=== PATIENT | male | born 1970 | race Caucasian/White ===

== ENCOUNTER 2019-08-14 14:39 | Emergency (ER) | payer MEDICARE, SELFPAY ==
[2019-08-14 15:08] VITALS: BP 118/82; PULSE 81; RESP 16; TEMP 37.1; O2SAT 99
--- NOTE | 2019-08-14 16:25 | ED.GENADULT ---
HPI - General Adult General Chief complaint: Eye Problems Stated complaint: Eye problems Time Seen by Provider: 08/14/19 16:23 Source: patient and RN notes reviewed Mode of arrival: ambulatory Limitations: no limitations History of Present Illness HPI narrative: 49-year-old male presents with fatherMandeep complains of right eye redness, irritation, and itching for the past 7 days. No treatment. Symptoms increased today with drainage and redness. Slightly matted. No pain. No copious drainage. Exacerbating factors is opening eye. Relieving factors is closing eyes. Wear glasses. No injury or trauma to eye. No blurred vision, double vision, sensation of foreign body, or pain of eye with movement. Remains active. Some parts of this dictation were generated by voice recognition software and may contain typographical and/or grammatical inaccuracies. Related Data Home Medications Medication Instructions Recorded Confirmed Depakote 08/16/19 atorvastatin 08/16/19 lisinopril 08/16/19 Allergies Allergy/AdvReac Type Severity Reaction Status Date / Time No Known Allergies Allergy Verified 08/16/19 09:54 Review of Systems Review of Systems: Narrative: CONSTITUTIONAL: Denies fever, chills, sweats. EYES: Denies visual changes. Complains of RT eye redness, itching, irritation, drainage, matted together. ENT: Complains of rhinorrhea, congestion. Denies sore throat, otalgia. CARDIOVASCULAR: Denies chest pain, palpitations, edema. RESPIRATORY: Denies dyspnea, wheezing, cough. GASTROINTESTINAL: Denies abdominal pain, nausea, vomiting, diarrhea. GENITOURINARY: Denies dysuria, hematuria, abnormal discharge. SKIN: Denies rash or itching. MUSCULOSKELETAL: Denies acute back pain, joint pain, or myalgia. NEUROLOGIC: Denies numbness or focal weakness. PSYCHIATRIC: Denies anxiety or depression. All systems reviewed & are unremarkable except as noted in HPI and below. [facility] Past Medical History Medical History (Updated 08/23/19 @ 00:22 by ANNIKA Hinton) Hypercholesteremia Hypertension Seizures Surgical History Surgical History (Updated 08/14/19 @ 16:28 by ANNIKA Hinton) No significant past surgical history Family History Family History (Updated 08/14/19 @ 16:30 by ANNIKA Hinton) Father Hypertension Mother PSP (progressive supranuclear palsy) Social History Social History (Updated 08/14/19 @ 16:36 by ANNIKA Hinton) Smoking status: Never smoker Second hand tobacco smoke exposure: No Alcohol intake: current Substance use: never Gender identity (if verbalized by the patient): Male Comments At time of signature, agree with nurse past medical, surgical, social, and family history. There is no relevant family history pertinent to the presenting complaint. Exam Narrative: Exam Narrative: GENERAL: This is a well-nourished, well-developed patient, in no apparent distress. HEAD: normocephalic, atraumatic. EYES: PERRL. Sclera clear/white to LT eye only. RT eye sclera moderate tristen and clear, with yellow-green drainage Consistent with Conjunctivitis. No swelling, no tenderness on palpation. Vision is grossly intact. No visible or palpable Hordeolum present, no drainable abscess. No foreign body or lesions were noted on eversion of upper eyelid. No concern for Tana-orbital cellulitis or orbital cellulitis. EARS: External ears normal, auditory canals clear and without drainage, TMs normal without perforation. Hearing grossly intact. NOSE: External nose normal with no obvious nasal discharge, nares with mild redness and turbinate, no rhinorrhea. THROAT: Mucous membranes moist, posterior pharynx with PND, mild erythema, no exudate, and normal tonsils. No drainage, no concern for Peritonsillar abscess. No drooling, trismus, or neck swelling. CARDIOVASCULAR: Regular rate and rhythm without murmurs, gallops, or rubs. RESPIRATORY: Clear to auscultation.
== END 2019-08-14 16:47 | disposition home or self-care (01) ==
PROVIDERS: Emergency Provider Nurse Practitioner Family; PCP Internal Medicine
DX: H10.9 Unspecified conjunctivitis (principal); E78.00 Pure hypercholesterolemia, unspecified; I10 Essential (primary) hypertension; G40.909 Epilepsy, unspecified, not intractable, without status epilepticus
CPT/HCPCS: 99203; A9270; G0463

== ENCOUNTER 2019-08-16 09:22 | Emergency (ER) | payer MEDICARE, SELFPAY ==
[2019-08-16 09:44] VITALS: BP 116/74; PULSE 60; RESP 18; TEMP 36.2; O2SAT 99
--- NOTE | 2019-08-16 09:46 | ED.EYEPROB ---
HPI - Eye Problem General Chief complaint: Eye Problems Stated complaint: Right eye redness Time Seen by Provider: 08/16/19 09:46 Source: patient and RN notes reviewed History of Present Illness HPI Narrative: Patient is a 49-year-old male that presents to the urgent care with his father with complaints of eye irritation. Patient states is been ongoing for a couple weeks and he has been seen before for the same issue and given polymyxin. Patient states that he has been using the polymyxin as directed/as needed. Patient denies any trauma or injury to the eyes. States that he does rub his eyes a lot. No other acute complaints. No acute distress noted. Patient read the plan of care. Related Data Home Medications Medication Instructions Recorded Confirmed Depakote 08/16/19 atorvastatin 08/16/19 lisinopril 08/16/19 Allergies Allergy/AdvReac Type Severity Reaction Status Date / Time No Known Allergies Allergy Verified 08/16/19 09:54 Review of Systems Review of Systems: Narrative: CONSTITUTIONAL: Denies fever, chills, or sweats. EYES: Reports of right eye irritation/redness ENT: Denies rhinorrhea, congestion, sore throat, or otalgia. CARDIOVASCULAR: Denies chest pain, palpitations, or edema. RESPIRATORY: Denies cough or dyspnea. GASTROINTESTINAL: Denies abdominal pain, nausea, vomiting, or diarrhea. GENITOURINARY: Denies dysuria or hematuria. SKIN: Denies rash or itching. MUSCULOSKELETAL: Denies back pain, joint pain, or myalgia. NEUROLOGIC: Denies headache, numbness, or weakness. All other systems reviewed are negative, except as documented in HPI. [facility] Past Medical History Medical History (Updated 08/16/19 @ 10:01 by ANNIKA Jamison) Hypercholesteremia Hypertension Seizures Surgical History Surgical History (Updated 08/14/19 @ 16:28 by ANNIKA Hinton) No significant past surgical history Family History Family History (Updated 08/14/19 @ 16:30 by ANNIKA Hinton) Father Hypertension Mother PSP (progressive supranuclear palsy) Social History Social History (Updated 08/14/19 @ 16:36 by ANNIKA Hinton) Smoking status: Never smoker Second hand tobacco smoke exposure: No Alcohol intake: current Substance use: never Gender identity (if verbalized by the patient): Male Comments At the time of my signature, I reviewed and agree with the nursing past medical, surgical, social, and family history. There is no relevant family history pertinent to the patient complaint. Exam Narrative: Exam Narrative: GENERAL: This is a well-nourished, well-developed patient, in no apparent distress. HEAD: normocephalic, atraumatic. EYES: PERRL. Sclera clear/white. Vision is grossly intact. Very mild erythema noted to right conjunctivea without matting or discharge. EARS: External ears normal, auditory canals clear and without drainage, TMs normal without perforation. Hearing grossly intact. NOSE: External nose normal with no obvious nasal discharge, nares without redness, no rhinorrhea. THROAT: Mucous membranes moist NECK: Neck supple CARDIOVASCULAR: Regular rate and rhythm without murmurs, gallops, or rubs. RESPIRATORY: Clear to auscultation. Breath sounds equal bilaterally. No wheezes, rales, or rhonchi. SKIN: warm, intact with no suspicious lesions or rash, good texture and turgor. NEURO: awake, alert, and oriented to person, place and time. There were no obvious focal neurologic abnormalities. EXTREMITIES: No clubbing, cyanosis, or edema. Course Vital Signs Vital signs: Vital Signs Temperature 97.1 F L 08/16/19 09:44 Pulse Rate 60 08/16/19 09:44 Respiratory Rate 18 08/16/19 09:44 Blood Pressure 116/74 08/16/19 09:44 Pulse Oximetry 99 08/16/19 09:44 Temperature 97.1 F L 08/16/19 09:44 Pulse Rate 60 08/16/19 09:44 Respiratory Rate 18 08/16/19 09:44 Blood Pressure 116/74 08/16/19 09:44 Pulse Oximetry 99 08/16/19
== END 2019-08-16 10:03 | disposition home or self-care (01) ==
PROVIDERS: Emergency Provider Nurse Practitioner Family; PCP Internal Medicine
DX: H10.11 Acute atopic conjunctivitis, right eye (principal); E78.00 Pure hypercholesterolemia, unspecified; I10 Essential (primary) hypertension; G40.909 Epilepsy, unspecified, not intractable, without status epilepticus
CPT/HCPCS: 99211; G0463

== ENCOUNTER 2019-12-02 09:43 | Outpatient (CLI) | payer MEDICARE, SELFPAY ==
[2019-12-02 10:21] LABS: Basophils Percent Auto 0.6 % (0.2-1.2); Eosinophils Absolute Auto 0.4 K/mm3 (0-0.3); Eosinophils Percent Auto 6.8 % (0-4.4); Hematocrit 45.2 % (42.0-52.0); Immature Granulocyte Absolute 0.01 K/mm3 (0.00-0.031); Immature Granulocyte Percent A 0.2 % (0-0.5); Lymphocytes Absolute Auto 2.34 K/mm3 (0.9-3.2); Lymphocytes Percent Auto 37.3 % (18.3-44.2); Mean Corpuscular HGB Conc 33.2 g/dl (32-36); Mean Corpuscular Hemoglobin 30.8 pg (26-34); Mean Corpuscular Volume 92.8 fl (80-100); Mean Platelet Volume 10.1 fl (7.4-10.4); Monocytes Absolute Auto 0.7 K/mm3 (0.1-0.6); Monocytes Percent Auto 10.7 % (2.6-8.5); Neutrophils Absolute Auto 2.8 K/mm3 (1.3-6.7); Neutrophils Percent Auto 44.4 % (45.5-73.1); Platelet Count Result 234 k/mm3 (150-375); Red Blood Count 4.87 M/mm3 (4.6-6.20); Red Cell Distribution Width 12.5 % (11.5-14.5); White Blood Count 6.3 K/mm3 (4.5-10.0)
[2019-12-02 10:34] LABS: Alanine Aminotransferase 20 U/L (4-50); Albumin Level 4.2 g/dL (3.5-5.1); Alkaline Phosphatase 64 U/L (38-126); Aspartate Amino Transferase 28 U/L (17-59); Bilirubin,Total 0.8 mg/dL (0.2-1.3); Blood Urea Nitrogen 16 mg/dL (9-20); Calcium 8.7 mg/dL (8.4-10.2); Carbon Dioxide 27 mmol/L (22-30); Chloride 104 mmol/L (98-107); Cholesterol 162 mg/dL (0-200); Estimated Glomerular Filt Rate > 60; Glucose 103 mg/dL (75-110); HDL Direct 58 mg/dL; Potassium 4.5 mmol/L (3.4-5.0); Sodium 137 mmol/L (137-145); Triglycerides 60 mg/dL (<150)
[2019-12-02 10:48] LABS: LDL Cholesterol Direct 77 mg/dL
[2019-12-02 10:50] LABS: Valproic Acid 97.2 ug/mL (50-120)
== END 2019-12-02 09:44 | disposition home or self-care (01) ==
PROVIDERS: PCP Internal Medicine; Visit Provider Internal Medicine
DX: E78.2 Mixed hyperlipidemia (principal); Z79.899 Other long term (current) drug therapy
CPT/HCPCS: 36415; 80053; 80061; 80164; 84443; 85025

== ENCOUNTER 2020-08-13 15:47 | Outpatient (CLI) | payer MEDICARE, SELFPAY | END 2020-08-13 15:48 | disposition home or self-care (01) | LOC: ANHCOVIDVC 15:47 | PROVIDERS: PCP Internal Medicine | DX: Z23 Encounter for immunization (principal) | CPT/HCPCS: 0001A; 91300 ==

== ENCOUNTER 2020-09-03 15:53 | Outpatient (CLI) | payer MEDICARE, SELFPAY | END 2020-09-03 15:54 | disposition home or self-care (01) | LOC: ANHCOVIDVC 15:54 | PROVIDERS: PCP Internal Medicine | DX: Z23 Encounter for immunization (principal) | CPT/HCPCS: 0002A; 91300 ==

== ENCOUNTER 2020-12-28 14:52 | Outpatient (CLI) | payer MEDICARE, SELFPAY ==
[2020-12-28 15:30] LABS: Basophils Percent Auto 0.5 % (0.2-1.2); Eosinophils Absolute Auto 0.1 K/mm3 (0-0.3); Eosinophils Percent Auto 1.2 % (0-4.4); Hematocrit 47.2 % (42.0-52.0); Hemoglobin 15.1 g/dL (14.0-18.0); Immature Granulocyte Absolute 0.02 K/mm3 (0.00-0.031); Immature Granulocyte Percent A 0.3 % (0-0.5); Lymphocytes Absolute Auto 1.84 K/mm3 (0.9-3.2); Lymphocytes Percent Auto 32.1 % (18.3-44.2); Mean Corpuscular Hemoglobin 29.5 pg (26-34); Mean Corpuscular Volume 92.2 fl (80-100); Mean Platelet Volume 11.6 fl (7.4-10.4); Monocytes Absolute Auto 0.6 K/mm3 (0.1-0.6); Monocytes Percent Auto 9.6 % (2.6-8.5); Neutrophils Absolute Auto 3.2 K/mm3 (1.3-6.7); Neutrophils Percent Auto 56.3 % (45.5-73.1); Platelet Count Result 196 k/mm3 (150-375); Red Blood Count 5.12 M/mm3 (4.6-6.20); Red Cell Distribution Width 12.6 % (11.5-14.5); White Blood Count 5.7 K/mm3 (4.5-10.0)
[2020-12-28 16:03] LABS: Alanine Aminotransferase 30 U/L (4-50); Albumin Level 4.3 g/dL (3.5-5.1); Alkaline Phosphatase 54 U/L (38-126); Anion Gap 8 mmol/L (8-16); Aspartate Amino Transferase 30 U/L (17-59); Bilirubin,Total 0.8 mg/dL (0.2-1.3); Blood Urea Nitrogen 15 mg/dL (9-20); Calcium 9.6 mg/dL (8.4-10.2); Carbon Dioxide 31 mmol/L (22-30); Chloride 103 mmol/L (98-107); Cholesterol 159 mg/dL (0-200); Estimated Glomerular Filt Rate > 60; Glucose 94 mg/dL (65-110); HDL Direct 56 mg/dL; Potassium 4.1 mmol/L (3.4-5.0); Sodium 142 mmol/L (137-145); Triglycerides 93 mg/dL (<150)
[2020-12-28 16:14] LABS: LDL Cholesterol Direct 65 mg/dL
[2020-12-28 16:33] LABS: Prostate Specific Antigen 0.5 ng/mL (< OR = 4.0)
[2020-12-28 16:59] LABS: Valproic Acid 47.7 ug/mL (50-120)
[2020-12-28 17:12] LABS: Free T4 Free Thyroxine 1.04 ng/mL (0.78-2.19); Vitamin D 25 Hydroxy 46.4 ng/mL
[2020-12-28 18:12] LABS: Hemoglobin A1C 5.4 % (<5.7)
[2021-01-04 19:32] LABS: GGT 15 U/L (3-95)
== END 2020-12-28 14:53 | disposition home or self-care (01) ==
PROVIDERS: PCP Internal Medicine; Visit Provider Internal Medicine
DX: Z79.899 Other long term (current) drug therapy (principal); Z12.5 Encounter for screening for malignant neoplasm of prostate; E78.2 Mixed hyperlipidemia; R56.9 Unspecified convulsions; E55.9 Vitamin D deficiency, unspecified
CPT/HCPCS: 36415; 80053; 80061; 80164; 82306; 82977; 83036; 84153; 84439; 84443; 85025; G0103

== ENCOUNTER 2021-05-24 07:41 | Outpatient (CLI) | payer MEDICARE, SELFPAY ==
[2021-05-24 08:28] LABS: Alanine Aminotransferase 41 U/L (4-50); Albumin Level 4.2 g/dL (3.5-5.1); Alkaline Phosphatase 63 U/L (38-126); Aspartate Amino Transferase 31 U/L (17-59); Bilirubin,Total 0.4 mg/dL (0.2-1.3)
[2021-05-24 08:35] LABS: Prealbumin 23.9 mg/dL (17.6-36.0)
[2021-05-24 09:35] LABS: Folic Acid 6.6 ng/mL (2.76->20)
[2021-05-28 08:13] LABS: Vitamin B1 19 nmol/L (8-30)
[2021-05-31 22:38] LABS: Vitamin B2 <5.0 nmol/L (6.2-39.0)
== END 2021-05-24 07:42 | disposition home or self-care (01) ==
LOC: ANHLAB 07:47
PROVIDERS: PCP Internal Medicine; Visit Provider Internal Medicine
DX: E53.9 Vitamin B deficiency, unspecified (principal); R63.4 Abnormal weight loss; Z51.81 Encounter for therapeutic drug level monitoring; Z79.899 Other long term (current) drug therapy
CPT/HCPCS: 36415; 80076; 82607; 82746; 84134; 84252; 84425

== ENCOUNTER → 2021-06-07 08:53 | Outpatient (CLI) | payer MEDICARE, SELFPAY ==
--- NOTE | ~2021-06-07 | CT_ITS ---
EXAMINATION: CT chest abdomen pelvis w con DATE: 06/07/2021 09:28 INDICATION: Weight loss TECHNIQUE: Computed tomography (CT) of the chest, abdomen, and pelvis was performed with 100 mL Omnip aque-350 intravenous contrast. Automated exposure control and iterative reconstruction technique were employed. The dose-length product was 544.52 mGy-cm. COMPARISON: None FINDINGS: CHEST CT: No suspicious pulmonary nodules, pneumonia, pulmonary edema or pleural effusion. Heart size is normal . No pericardial effusion. Thoracic aorta is normal in caliber with no dissection. No pathologically enlarged thoracic lymphadenopathy. Moderate thoracic spondylosis. Small sclerotic bone island at the left humeral head. ABDOMEN/PELVIS CT: Liver, gallbladder, spleen, pancreas and bilateral adrenal glands are normal. A couple right renal cy sts the larger measuring 3.7 cm. Diffuse mild thickening of the bladder wall. Bowels including the ap pendix are normal. No free intraperitoneal gas or fluid. No pathologically enlarged abdominal or pelv ic lymphadenopathy. Moderate lumbar spondylosis. Nonspecific 8 mm peripherally sclerotic lesion in th e left iliac bone. Small sclerotic bone island at the left femoral head. IMPRESSION: 1. Diffuse mild wall thickening of the bladder which could be due to incomplete distention with diffe rential including cystitis either acute or chronic, chronic outlet obstruction or neurogenic bladder. 2. 8 mm peripherally sclerotic lesion at the left iliac bone, most likely benign but would consider b one scan if there is no prior outside imaging to document chronic stability. 3. No other lesions suspicious for malignancy the chest, abdomen or pelvis. Reviewed, dictated and finalized at location B. SPLITTER IMPRESSION: 1. Diffuse mild wall thickening of the bladder which could be due to incomplete distention with differential including cystitis either acute or chronic, chron ic outlet obstruction or neurogenic bladder. 2. 8 mm peripherally sclerotic lesion at the left iliac bone, most likely benig n but would consider bone scan if there is no prior outside imaging to document chronic stability. 3. No other lesions suspicious for malignancy the chest, abdomen or pelvis.
== END ==
PROVIDERS: Visit Provider Internal Medicine
DX: R63.4 Abnormal weight loss (principal); R93.41 Abnormal radiologic findings on diagnostic imaging of renal pelvis, ureter, or bladder; M89.9 Disorder of bone, unspecified
CPT/HCPCS: 71260; 74177; Q9967

== ENCOUNTER 2021-06-18 10:20 | Outpatient (CLI) | payer MEDICARE, SELFPAY ==
[2021-06-18 10:37] LABS: Basophils Percent Auto 0.4 % (0.2-1.2); Eosinophils Absolute Auto 0.1 K/mm3 (0-0.3); Eosinophils Percent Auto 2.6 % (0-4.4); Hematocrit 47.3 % (42.0-52.0); Hemoglobin 15.1 g/dL (14.0-18.0); Immature Granulocyte Absolute 0.01 K/mm3 (0.00-0.031); Immature Granulocyte Percent A 0.2 % (0-0.5); Lymphocytes Absolute Auto 1.52 K/mm3 (0.9-3.2); Lymphocytes Percent Auto 32.6 % (18.3-44.2); Mean Corpuscular HGB Conc 31.9 g/dl (32-36); Mean Corpuscular Hemoglobin 30.4 pg (26-34); Mean Corpuscular Volume 95.4 fl (80-100); Mean Platelet Volume 10.4 fl (7.4-10.4); Monocytes Absolute Auto 0.7 K/mm3 (0.1-0.6); Monocytes Percent Auto 14.6 % (2.6-8.5); Neutrophils Absolute Auto 2.3 K/mm3 (1.3-6.7); Neutrophils Percent Auto 49.6 % (45.5-73.1); Platelet Count Result 203 k/mm3 (150-375); Red Blood Count 4.96 M/mm3 (4.6-6.20); Red Cell Distribution Width 12.5 % (11.5-14.5); White Blood Count 4.7 K/mm3 (4.5-10.0)
[2021-06-18 11:54] LABS: Free T4 Free Thyroxine 0.77 ng/mL (0.78-2.19); Vitamin D 25 Hydroxy 42.7 ng/mL
[2021-06-18 12:52] LABS: Alanine Aminotransferase 26 U/L (4-50); Albumin Level 4.4 g/dL (3.5-5.1); Alkaline Phosphatase 57 U/L (38-126); Anion Gap 7 mmol/L (8-16); Aspartate Amino Transferase 32 U/L (17-59); Bilirubin,Total 0.6 mg/dL (0.2-1.3); Blood Urea Nitrogen 24 mg/dL (9-20); Calcium 9.5 mg/dL (8.4-10.2); Carbon Dioxide 33 mmol/L (22-30); Chloride 105 mmol/L (98-107); Cholesterol 186 mg/dL (0-200); Estimated Glomerular Filt Rate > 60; Glucose 90 mg/dL (65-110); HDL Direct 45 mg/dL; Potassium 4.1 mmol/L (3.4-5.0); Sodium 145 mmol/L (137-145); Triglycerides 83 mg/dL (<150)
[2021-06-18 13:02] LABS: LDL Cholesterol Direct 100 mg/dL
[2021-06-18 14:10] LABS: Folic Acid 18.2 ng/mL (2.76->20); Vitamin B12 > 1000.0 pg/mL (239-931)
== END 2021-06-18 10:21 | disposition home or self-care (01) ==
LOC: ANHLAB 10:25
PROVIDERS: PCP Internal Medicine; Visit Provider Internal Medicine
DX: E55.9 Vitamin D deficiency, unspecified (principal); E53.8 Deficiency of other specified B group vitamins; E78.2 Mixed hyperlipidemia; Z13.29 Encounter for screening for other suspected endocrine disorder; Z79.899 Other long term (current) drug therapy
CPT/HCPCS: 36415; 80053; 80061; 82306; 82607; 82746; 84439; 84443; 85025

== ENCOUNTER 2021-06-22 15:17 | Outpatient (CLI) | payer MEDICARE, SELFPAY ==
--- NOTE | ~2021-06-22 | XR_ITS ---
EXAMINATION: XR lumbar spine 2-3V EXAM DATE: 06/22/2021 10:33 INDICATION: M54.9Dorsalgia 2 months, No Injury, Radiculopathy Both Legs . TECHNIQUE: Lumber spine frontal, lateral, lateral L5-S1 projections for interpretation. There is no prior study for comparison. FINDINGS: There are no acute fractures identified. Mild to moderate disc disease L-1-2, L4-5 and L5-S 1. There is grade 1 retrolisthesis L5 on S1. There is mild to moderate lower lumbar facet arthropathy . Mild lumbar levoscoliosis. Sacrum, sacroiliac joints, sacral arcuate lines are intact. Paraspinal s oft tissue is unremarkable. IMPRESSION: 1. Mild to moderate lumbar spondylosis. 2. Mild levoscoliosis. Reviewed, dictated and finalized at location G. SUPERVISOR
[2021-06-22 10:56] LABS: Basophils Percent Auto 0.4 % (0.2-1.2); Eosinophils Absolute Auto 0.1 K/mm3 (0-0.3); Hematocrit 48.9 % (42.0-52.0); Hemoglobin 15.6 g/dL (14.0-18.0); Immature Granulocyte Absolute 0.01 K/mm3 (0.00-0.031); Immature Granulocyte Percent A 0.2 % (0-0.5); Lymphocytes Absolute Auto 1.94 K/mm3 (0.9-3.2); Lymphocytes Percent Auto 38.2 % (18.3-44.2); Mean Corpuscular HGB Conc 31.9 g/dl (32-36); Monocytes Absolute Auto 0.5 K/mm3 (0.1-0.6); Monocytes Percent Auto 9.6 % (2.6-8.5); Neutrophils Absolute Auto 2.5 K/mm3 (1.3-6.7); Neutrophils Percent Auto 49.6 % (45.5-73.1); Platelet Count Result 242 k/mm3 (150-375); Red Cell Distribution Width 12.2 % (11.5-14.5); White Blood Count 5.1 K/mm3 (4.5-10.0)
[2021-06-22 11:02] LABS: Add Urine Microscopic? YES; Amorphous Sediment Urine Few; Appearance Urine Cloudy (Clear); Bilirubin Urine Negative (Negative); Blood Urine Negative (Negative); Color Urine Yellow (Yellow); Glucose Urine UA Negative (Negative); Ketones Urine Trace mg/dL (Negative); Leukocyte Esterase Ur Negative LEU/UL (Negative); Mucus Urine Heavy /lpf; Nitrate Urine Negative (Negative); Protein Urine Negative (Negative); RBC Urine 0-2 /hpf (0-2); Urobilinogen Urine Negative mg/dL (<2.0); WBC Urine 0-3 /hpf
[2021-06-22 11:18] LABS: Specific Grav Ur 1.031 (1.001-1.035)
[2021-06-23 20:36] LABS: Erythrocyte Sedimentation Rate 9 mm/hr (0-20)
== END 2021-06-22 15:18 | disposition home or self-care (01) ==
LOC: ANHLAB 06-23 15:17
PROVIDERS: PCP Internal Medicine; Visit Provider Internal Medicine
DX: G89.29 Other chronic pain (principal); M54.50 Low back pain, unspecified; R53.1 Weakness; Z79.899 Other long term (current) drug therapy; M47.816 Spondylosis without myelopathy or radiculopathy, lumbar region; M41.86 Other forms of scoliosis, lumbar region
CPT/HCPCS: 36415; 72100; 81001; 85025; 85652

== ENCOUNTER 2021-07-01 12:47 | Outpatient (CLI) | payer MEDICARE, MEDICAID, SELFPAY | END 2021-07-01 12:48 | disposition home or self-care (01) | PROVIDERS: PCP Internal Medicine; Visit Provider Internal Medicine | DX: M54.9 Dorsalgia, unspecified (principal); G89.29 Other chronic pain; Z79.899 Other long term (current) drug therapy | CPT/HCPCS: 87086; 97110; 97161 ==

== ENCOUNTER 2021-07-05 08:26 | Outpatient (CLI) | payer MEDICARE, MEDICAID, SELFPAY ==
--- NOTE | ~2021-07-05 | NM_ITS ---
EXAMINATION: NM bone scan whole body DATE: 07/05/2021 11:47 INDICATION: Disorder of bone, unspecified. Sclerotic lesion of left ilium. TECHNIQUE: 25.4 mCi Tc-99m HDP was administered intravenously. Delayed whole-body scintigrams were o btained. COMPARISON: CT chest, abdomen, and pelvis 06/07/2021 FINDINGS: There is increased activity at L4-L5 correlating with degenerative disc disease by CT. Ther e is increased activity at the acromioclavicular joints, likely osteoarthritis. IMPRESSION: 1. No evidence of malignancy. Reviewed, dictated and finalized at location A. EX THREAD WINDER
== END 2021-07-05 08:27 | disposition home or self-care (01) ==
LOC: ANHIMG 08:32
PROVIDERS: PCP Internal Medicine; Visit Provider Internal Medicine
DX: M89.9 Disorder of bone, unspecified (principal)
CPT/HCPCS: 78306; A9561

== ENCOUNTER 2021-07-26 15:30 | Outpatient (RCR) | payer MEDICARE, MEDICAID, SELFPAY ==
--- NOTE | 2021-07-01 10:42 | PTOPEVAL ---
PHYSICAL THERAPY EVALUATION AND PLAN OF CARE 07-01-21 Thank you for referring Michael Pang to [facility] [facility], for the diagnosis of back pain. Zachary is scheduled to be seen for therapy? 2 x/week for 3 weeks. Please review, sign, date and return this plan of care INES. I agree with and certify that the following plan of care is medically necessary. Referring Physician Date Attending Provider: Eladio Brush MD *PT Outpatient Evaluation Document 07/01/21 09:45 NEELAM (Rec: 07/01/21 10:41 NEELAM [id number]) Past Medical History Source of Past Medical History Recalled from Previous Visit, Confirmed with Patient/Family Neurological History Hx Neurological Disorders No Significant History Cardiovascular History Hx Hypercholesterolemia Yes: meds Hx Hypertension Yes Respiratory History Hx Respiratory Disorders No Significant History Gastrointestinal History Hx Gastrointestinal Disorders No Significant History Genitourinary History Hx Genitourinary Disorders No Significant History Musculoskeletal History Hx Other Musculoskeletal Disorders Yes: B knee pain Hematological History Hx Hematological Disorders No Significant History Endocrine History Hx Endocrine Disorders No Significant History HEENT History Hx HEENT Disorders No Significant History Integumentary History Hx Skin Disorders No Significant History Reproductive History Hx Reproductive Disorders No Significant History Psychosocial History Hx Attention Deficit Disorder Yes Hx Psychiatric Treatment Yes Hx Other Psychiatric Disorders Yes: dyslexic, autism Pain History History of Any Previous or Ongoing No Significant History Instance of Pain Anesthesia History Hx Anesthesia Reactions No Significant History Evaluation Information Problem Diagnosis back pain Onset Mar 2021 Additional Evaluation Detail caregiver Tammi with pt today Subjective Information gradual increase in pain; no Query Text:As Reported By Patient/ injury to back; to have bone Family scan and see neurologist--? 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
--- NOTE | 2021-07-05 07:21 | PCPTNOTE ---
Patient called & cancelled scheduled appointment this date due to having appointment with returned case inspector.
--- NOTE | 2021-07-07 10:46 | PCPTNOTE ---
Patient called & cancelled scheduled appointment this date due to bad weather.
--- NOTE | 2021-07-22 13:40 | PCPTNOTE ---
pt cancel due to bad weather;
--- NOTE | 2021-07-26 16:13 | PTOPEVAL ---
PHYSICAL THERAPY DISCHARGE 07-26-21 Refer to the clinical summary below, for his status today, compared to the initial evaluation. The goals were partially achieved. Discharge PT--to continue with home exercises and posture correction. Thank you for referring Michael Pang to [facility].? Please review, sign, date and return this Discharger report INES. I agree with and certify that the following plan of care is medically necessary. Referring Physician Date Attending Provider: Eladio Brush MD Document 07/26/21 15:30 NEELAM (Rec: 07/26/21 16:13 NEELAM [id number]) Assessment Status Discharge Subjective Information Zachary reports: has been trying Query Text:As Reported By Patient/ to do his exercises every day- Family -family and helpers remind him ; is working without back hurting; Pain Assessment Timing of Pain Assessment Timing of Pain Assessment Assessment Pain Scale Pain Scale Used Numeric (1 - 10) Self Report Pain Assessment Bilateral Back Reported Pain Level 0 Pain Frequency Chronic,Intermittent Other Pain Description hurts sometimes; Other Pain Aggravating Factors potato picker something heavy Pain Score Pain Score 0: Self Report Interventions Used Interventions Used By Clinicians Education,Exercise Pain Relief Interventions Used By Inactivity/Rest Patient Lumbar ROM standing trunk flexion- fingers to ankles without pain ; trunk extension without pain ; prone on elbows reported feels good; Gross Lower Extremity Range of Motion R and L supine PROM: hamstring Comments stretch with SLR 60'; hip flexion, IR, ER without an increase pain Gross Lower Extremity Strength functional strength testing supine: SLR R 24/L 22 reps; side lying hip abduction R and L 25 reps prone hip extension R & L 20 reps -------- lifting floor/waist height with B UE and correct technique; required a few cues for posture with exercises; reviewed HEP, instruct to increase reps to 20 each, has been doing 10 reps, sometimes 2 sets; discuss
== END 2021-07-27 13:24 | disposition home or self-care (01) ==
LOC: ANHPT 15:30
PROVIDERS: PCP Internal Medicine; Visit Provider Internal Medicine
DX: M54.50 Low back pain, unspecified (principal); G89.29 Other chronic pain; M54.9 Dorsalgia, unspecified
CPT/HCPCS: 97110; 97161; 97530

== ENCOUNTER 2021-08-10 16:16 | Emergency (ER) | payer MEDICARE, MEDICAID, SELFPAY ==
[2021-08-10 16:54] VITALS: BP 105/78; PULSE 66; RESP 16; TEMP 36.8; O2SAT 98
--- NOTE | 2021-08-10 17:07 | ED.EYEPROB ---
HPI - Eye Problem General Chief complaint: Eye Problems Stated complaint: pink eye Time Seen by Provider: 08/10/21 17:07 Source: patient Mode of arrival: ambulatory Limitations: no limitations History of Present Illness HPI Narrative: 51 yo M presents with c/o itching, irritation, rednes and yellow drainge from L eye starting last night. pt wears glasses. no contact. denies trauma. no vision change. All systems reviewed and negative except as noted above. Related Data Allergies Allergy/AdvReac Type Severity Reaction Status Date / Time No Known Drug Allergies Allergy Unknown Unknown Verified 08/10/21 17:12 Review of Systems Review of Systems: CONSTITUTIONAL: Denies fever, chills, or sweats. EYES: Denies visual changes. Reports redness, drainage, irritation to left eye. ENT: Denies rhinorrhea, congestion, sore throat, or otalgia. CARDIOVASCULAR: Denies chest pain, palpitations, or edema. RESPIRATORY: Denies cough or dyspnea. GASTROINTESTINAL: Denies abdominal pain, nausea, vomiting, or diarrhea. GENITOURINARY: Denies dysuria or hematuria. SKIN: Denies rash or itching. MUSCULOSKELETAL: Denies back pain, joint pain, or myalgia. NEUROLOGIC: Denies headache, numbness, or weakness. PSYCHIATRIC: Denies anxiety or depression. All other systems reviewed are negative, except as documented in HPI. [facility] Past Medical History Medical History (Updated 08/10/21 @ 17:19 by Penny Limon NP) Adult BMI 19-24 kg/sq m Adult BMI <19 kg/sq m Autism Back pain BMI 23.0-23.9, adult Bone lesion Chronic low back pain Colon cancer screening Encounter for routine adult health examination with abnormal findings Encounter for routine adult health examination without abnormal findings Encounter for special screening examination for neoplasm of prostate Follow up Hyperlipidemia Hypertension On termite control service representative drug therapy Pyogenic granuloma Seizures Unintentional weight loss Vitamin D deficiency Surgical History Surgical History No significant past surgical history Family History Family History Father Hypertension Mother PSP (progressive supranuclear palsy) Social History Social History Smoking status: Never smoker Second hand tobacco smoke exposure: No Alcohol intake: current Substance use: never Gender identity (if verbalized by the patient): Male Comments At time of signature, agree with nursing past medical, surgical, social and family history. There is no relevant family history pertinent to the presenting complaint. Exam Narrative: GENERAL: This is a well-nourished, well-developed patient, in no apparent distress. HEAD: normocephalic, atraumatic. EYES: PERRL. Erythema to left conjunctive a, yellow drainage noted. EARS: External ears normal, auditory canals clear and without drainage, TMs normal without perforation. Hearing grossly intact. NOSE: External nose normal with no obvious nasal discharge, nares without redness, no rhinorrhea. THROAT: Mucous membranes moist, posterior pharynx clear. NECK: Neck supple, non-tender without lymphadenopathy, masses or thyromegaly. CARDIOVASCULAR: Regular rate and rhythm without murmurs, gallops, or rubs. RESPIRATORY: Clear to auscultation. Breath sounds equal bilaterally. No wheezes, rales, or rhonchi. GASTROINTESTINAL: Abdomen soft, non-tender, nondistended. Bowel sounds are active. No hepato-splenomegaly, or palpable masses. No guarding. SKIN: warm, Dry, intact with no suspicious lesions or rash, good texture and turgor. NEURO: awake, alert, and oriented to person, place and time. There were no obvious focal neurologic abnormalities. EXTREMITIES: No joint tenderness, effusion, or edema noted. No calf tenderness. Negative Homans sign bilaterally. BACK: Nontender without deformity. No CVA tenderness. Cou
== END 2021-08-10 17:30 | disposition home or self-care (01) ==
PROVIDERS: Emergency Provider Nurse Practitioner Family; PCP Internal Medicine
DX: H10.32 Unspecified acute conjunctivitis, left eye (principal); F84.0 Autistic disorder; E78.5 Hyperlipidemia, unspecified; I10 Essential (primary) hypertension; G40.909 Epilepsy, unspecified, not intractable, without status epilepticus
CPT/HCPCS: 99213; G0463

== ENCOUNTER 2021-09-24 15:35 | Outpatient (CLI) | payer MEDICARE, MEDICAID, SELFPAY ==
[2021-09-24 16:22] LABS: Valproic Acid 51.2 ug/mL (50-120)
[2021-09-24 16:34] LABS: Free T4 Free Thyroxine 0.82 ng/mL (0.78-2.19)
== END 2021-09-24 15:36 | disposition home or self-care (01) ==
PROVIDERS: PCP Internal Medicine; Visit Provider Internal Medicine
DX: R94.6 Abnormal results of thyroid function studies (principal); Z79.899 Other long term (current) drug therapy
CPT/HCPCS: 36415; 80164; 84439; 84443

== ENCOUNTER 2021-10-07 15:07 | Outpatient (CLI) | payer MEDICARE, MEDICAID, SELFPAY ==
[2021-10-07 16:31] LABS: Anion Gap 4 mmol/L (8-16); Blood Urea Nitrogen 21 mg/dL (9-20); Carbon Dioxide 31 mmol/L (22-30); Chloride 106 mmol/L (98-107); Cholesterol 185 mg/dL (0-200); Estimated Glomerular Filt Rate > 60; Glucose 88 mg/dL (65-110); HDL Direct 63 mg/dL; Potassium 4.3 mmol/L (3.4-5.0); Sodium 141 mmol/L (137-145); Triglycerides 82 mg/dL (<150)
[2021-10-07 16:47] LABS: LDL Cholesterol Direct 82 mg/dL
[2021-10-07 17:06] LABS: Free T4 Free Thyroxine 0.74 ng/mL (0.78-2.19)
[2021-10-08 06:47] LABS: Valproic Acid 49.9 ug/mL (50-120)
== END 2021-10-07 15:08 | disposition home or self-care (01) ==
PROVIDERS: PCP Internal Medicine; Visit Provider Internal Medicine
DX: R94.6 Abnormal results of thyroid function studies (principal); Z79.899 Other long term (current) drug therapy; Z13.1 Encounter for screening for diabetes mellitus; E78.2 Mixed hyperlipidemia
CPT/HCPCS: 36415; 80048; 80061; 80164; 83036; 84439; 84443

== ENCOUNTER 2021-12-03 10:05 | Outpatient (CLI) | payer MEDICARE, MEDICAID, SELFPAY ==
[2021-12-03 10:44] LABS: Alanine Aminotransferase 40 U/L (6-50); Aspartate Amino Transferase 46 U/L (17-59)
== END 2021-12-03 10:06 | disposition home or self-care (01) ==
PROVIDERS: PCP Internal Medicine; Visit Provider Podiatrist Foot & Ankle Surgery
DX: B35.1 Tinea unguium (principal)
CPT/HCPCS: 36415; 84450; 84460

== ENCOUNTER 2022-03-14 15:17 | Outpatient (CLI) | payer MEDICARE, MEDICAID, SELFPAY ==
[2022-03-14 15:47] LABS: Alanine Aminotransferase 36 U/L (6-50); Aspartate Amino Transferase 31 U/L (17-59)
== END 2022-03-14 15:18 | disposition home or self-care (01) ==
LOC: ANHLAB 15:20
PROVIDERS: PCP Internal Medicine; Visit Provider Podiatrist Foot & Ankle Surgery
DX: B35.1 Tinea unguium (principal)
CPT/HCPCS: 36415; 84450; 84460

== ENCOUNTER 2022-03-23 14:59 | Outpatient (CLI) | payer MEDICARE, MEDICAID, SELFPAY ==
[2022-03-23 16:29] LABS: Alanine Aminotransferase 44 U/L (6-50); Albumin Level 4.5 g/dL (3.5-5.1); Alkaline Phosphatase 56 U/L (38-126); Anion Gap 10 mmol/L (8-16); Aspartate Amino Transferase 37 U/L (17-59); Bilirubin,Total 0.7 mg/dL (0.2-1.3); Blood Urea Nitrogen 18 mg/dL (9-20); Calcium 9.1 mg/dL (8.4-10.2); Carbon Dioxide 30 mmol/L (22-30); Chloride 103 mmol/L (98-107); Cholesterol 164 mg/dL (0-200); Estimated Glomerular Filt Rate > 60; Glucose 104 mg/dL (65-110); HDL Direct 58 mg/dL; Potassium 4.3 mmol/L (3.4-5.0); Sodium 143 mmol/L (137-145); Triglycerides 90 mg/dL (<150)
[2022-03-23 16:51] LABS: LDL Cholesterol Direct 72 mg/dL
[2022-03-23 16:53] LABS: Valproic Acid 58.7 ug/mL (50-120)
[2022-03-23 16:58] LABS: Hemoglobin A1C 5.4 % (<5.7)
[2022-03-23 17:03] LABS: Free T4 Free Thyroxine 0.86 ng/mL (0.78-2.19); Vitamin D 25 Hydroxy 46.8 ng/mL
[2022-03-23 17:10] LABS: Prostate Specific Antigen 0.6 ng/mL (< OR = 4.0)
== END 2022-03-23 15:00 | disposition home or self-care (01) ==
LOC: ANHLAB 15:00
PROVIDERS: PCP Internal Medicine; Visit Provider Internal Medicine
DX: Z12.5 Encounter for screening for malignant neoplasm of prostate (principal); E55.9 Vitamin D deficiency, unspecified; E78.5 Hyperlipidemia, unspecified; Z51.81 Encounter for therapeutic drug level monitoring; R56.9 Unspecified convulsions; Z79.899 Other long term (current) drug therapy
CPT/HCPCS: 36415; 80053; 80061; 80164; 82306; 83036; 84153; 84439; 84443; G0103

== ENCOUNTER 2023-02-01 10:40 | Outpatient (CLI) | payer MEDICARE, MEDICAID, SELFPAY ==
[2023-02-01 12:07] LABS: Alanine Aminotransferase 24 U/L (6-50); Albumin Level 3.8 g/dL (3.5-5.1); Alkaline Phosphatase 51 U/L (38-126); Anion Gap 3 mmol/L (8-16); Aspartate Amino Transferase 24 U/L (17-59); Bilirubin,Total 0.9 mg/dL (0.2-1.3); Blood Urea Nitrogen 18 mg/dL (9-20); Calcium 8.8 mg/dL (8.4-10.2); Carbon Dioxide 32 mmol/L (22-30); Chloride 105 mmol/L (98-107); Cholesterol 140 mg/dL (0-200); Estimated Glomerular Filt Rate > 60; Glucose 82 mg/dL (65-110); HDL Direct 58 mg/dL; Potassium 4.6 mmol/L (3.4-5.0); Sodium 140 mmol/L (137-145); Triglycerides 53 mg/dL (<150)
[2023-02-01 12:18] LABS: LDL Cholesterol Direct 65 mg/dL; Prealbumin 21.7 mg/dL (17.6-36.0)
[2023-02-01 12:32] LABS: Hemoglobin A1C 5.3 % (<5.7)
[2023-02-01 12:38] LABS: Thyroid Stimulating Hormone 0.878 uIU/mL (0.465-4.680)
[2023-02-01 12:44] LABS: Valproic Acid 62.2 ug/mL (50-120)
[2023-02-01 12:58] LABS: Free T4 Free Thyroxine 0.91 ng/mL (0.78-2.19)
== END 2023-02-01 10:41 | disposition home or self-care (01) ==
LOC: ANHLAB 10:41
PROVIDERS: PCP Internal Medicine; Visit Provider Internal Medicine
DX: E78.2 Mixed hyperlipidemia (principal); R63.4 Abnormal weight loss; Z13.1 Encounter for screening for diabetes mellitus; E55.9 Vitamin D deficiency, unspecified; Z13.29 Encounter for screening for other suspected endocrine disorder; Z79.899 Other long term (current) drug therapy; Z68.1 Body mass index [BMI] 19.9 or less, adult
CPT/HCPCS: 36415; 80053; 80061; 80164; 82306; 83036; 84134; 84439; 84443

== ENCOUNTER 2023-08-16 10:38 | Outpatient (CLI) | payer MEDICARE, MEDICAID, SELFPAY ==
[2023-08-16 11:02] LABS: Basophils Percent Auto 0.5 % (0.2-1.2); Eosinophils Absolute Auto 0.1 K/mm3 (0-0.3); Eosinophils Percent Auto 1.6 % (0-4.4); Hematocrit 45.4 % (42.0-52.0); Hemoglobin 14.6 g/dL (14.0-18.0); Immature Granulocyte Absolute 0.01 K/mm3 (0.00-0.031); Immature Granulocyte Percent A 0.2 % (0-0.5); Lymphocytes Percent Auto 31.6 % (18.3-44.2); Mean Corpuscular HGB Conc 32.2 g/dl (32-36); Mean Corpuscular Hemoglobin 30.3 pg (26-34); Mean Corpuscular Volume 94.2 fl (80-100); Mean Platelet Volume 10.3 fl (7.4-10.4); Monocytes Absolute Auto 0.6 K/mm3 (0.1-0.6); Monocytes Percent Auto 10.4 % (2.6-8.5); Neutrophils Absolute Auto 3.2 K/mm3 (1.3-6.7); Neutrophils Percent Auto 55.7 % (45.5-73.1); Platelet Count Result 208 k/mm3 (150-375); Red Blood Count 4.82 M/mm3 (4.6-6.20); Red Cell Distribution Width 13.1 % (11.5-14.5); White Blood Count 5.7 K/mm3 (4.5-10.0)
[2023-08-16 11:12] LABS: Alanine Aminotransferase 42 U/L (6-50); Alkaline Phosphatase 58 U/L (38-126); Anion Gap 4 mmol/L (8-16); Aspartate Amino Transferase 39 U/L (17-59); Bilirubin,Total 0.7 mg/dL (0.2-1.3); Blood Urea Nitrogen 21 mg/dL (9-20); Calcium 9.5 mg/dL (8.4-10.2); Carbon Dioxide 32 mmol/L (22-30); Chloride 106 mmol/L (98-107); Estimated Glomerular Filt Rate > 60; Glucose 84 mg/dL (65-110); Potassium 4.7 mmol/L (3.4-5.0); Sodium 142 mmol/L (137-145)
[2023-08-16 12:02] LABS: Valproic Acid 77.8 ug/mL (50-120)
[2023-08-16 12:15] LABS: Free T4 Free Thyroxine 0.72 ng/mL (0.78-2.19); Vitamin D 25 Hydroxy 59.9 ng/mL
== END 2023-08-16 10:39 | disposition home or self-care (01) ==
LOC: ANHLAB 10:43
PROVIDERS: PCP Internal Medicine; Visit Provider Internal Medicine
DX: E55.9 Vitamin D deficiency, unspecified (principal); R56.9 Unspecified convulsions; Z79.899 Other long term (current) drug therapy; Z13.29 Encounter for screening for other suspected endocrine disorder
CPT/HCPCS: 36415; 80053; 80164; 82306; 84439; 84443; 85025

== ENCOUNTER 2024-05-16 11:14 | Emergency (ER) | payer MEDICARE, MEDICAID, SELFPAY ==
[2024-05-16 11:17] VITALS: BP 136/84; PULSE 75; RESP 16; TEMP 36.3; O2SAT 100
--- NOTE | 2024-05-16 11:40 | ED.WOUNDLAC ---
HPI - Wound/Laceration General Chief Complaint: Wound/Laceration Stated Complaint: L index finger lac Time Seen by Provider: 05/16/24 11:23 Source: patient Mode of arrival: ambulatory Limitations: no limitations History of Present Illness HPI narrative: This is a 54-year-old male with PMH of seizures, autism, HLD who presents to the ED for chief complaint of laceration to the left index finger. Patient is arriving here from work at [email or web address]. States that he accidentally grabbed a knife too quickly which caused the laceration. Denies any further site of injury Related Data Home Medications ?Medication ?Instructions ?Recorded ?Confirmed ?Last Taken ?Type melatonin 3 mg capsule 3 mg PO QHS 03/23/22 03/26/24 Unknown History Allergies Allergy/AdvReac Type Severity Reaction Status Date / Time No Known Drug Allergies Allergy Unknown Unknown Verified 03/26/24 10:13 Review of Systems Review of Systems: All systems as dictated in HPI PMFSH Past Medical History Medical History Abnormal thyroid function test Adult BMI 19-24 kg/sq m Adult BMI <19 kg/sq m Anxiety Autism Back pain Bladder wall thickening Blepharitis BMI 20.0-20.9, adult BMI 23.0-23.9, adult Bone lesion Chronic low back pain Colon cancer screening Encounter for routine adult health examination with abnormal findings Encounter for routine adult health examination without abnormal findings Encounter for special screening examination for neoplasm of prostate Follow up Hyperlipidemia Hypertension On senior care drug therapy Physical exam, annual Pyogenic granuloma Seizures Skin lesion Unintentional weight loss Vitamin D deficiency Surgical History Surgical History No significant past surgical history Family History Family History Father Hypertension Mother PSP (progressive supranuclear palsy) Social History Social History Smoking status: Never smoker Second hand tobacco smoke exposure: No Alcohol intake: current Substance use: never Lack of Transportation: No Lack of Food: Never True Current Housing: I Have Housing Concerned About Future Housing: No Difficulty Paying Gas/Electric Bills: No Difficulty Paying for Meds: No Currently Unemployed: No Education: High School Diploma/GED Difficulty w/ Childcare or Family Care: No Living arrangements: with family Occupation/Education: occupation Gender identity (if verbalized by the patient): Male Exam Narrative: GENERAL: Well-appearing, well-nourished, and in no acute distress. MSK: Normal range of motion. No edema. SKIN: 1 cm laceration just proximal to the left index finger fingernail. No active bleeding NEURO: Alert and oriented x4. No focal deficits. PSYCH: Normal mood and affect. Course Vital Signs Vital signs: Vital Signs Temperature 97.4 F L 05/16/24 11:17 Pulse Rate 75 05/16/24 11:17 Respiratory Rate 16 05/16/24 11:17 Blood Pressure 136/84 05/16/24 11:17 Pulse Oximetry 100 05/16/24 11:17 Temperature 97.4 F L 05/16/24 11:17 Pulse Rate 75 05/16/24 11:17 Respiratory Rate 16 05/16/24 11:17 Blood Pressure 136/84 05/16/24 11:17 Pulse Oximetry 100 05/16/24 11:17 Procedures Laceration Laceration 1: Date: 05/16/24 Time: 11:55 Site: hand Side (If applicable): left Size (cm): 1 Description: linear Depth: simple, single layer Local Anesthetic: none Pre-repair: wound explored and irrigated extensively ====== Skin Level ====== Skin layer closed with: dermabond and steri strips Number of sutures: 1 ====== Subcutaneous Layer ====== ====== Muscle Layer ====== ====== Tendon Layer ====== MDM - Wound/Laceration MDM Narrative Medical decision making narrative: This is a 54-year-old who presents to the ED for finger laceration. Vitals are normal. Exam shows mild 1 cm laceration to the index finger of the left hand. Minimal active bleeding. Tdap updated today. The wound was well cleansed and irrigated here in the ED. Closed primarily with Dermabond and Steri-Strips. Laceration instructions given. Patient will be discharged in stable condition. Supportive measures discussed and return precautions given. Patient is understanding and agreeable with plan for discharge with PCP follow-up. Discharge Plan Discharge Clinical Impression: Laceration Patient Disposition: Home, Self-Care Condition: Stable Instructions: Antibiotic Form, Laceration (ED) Additional Instructions: Keep wound clean and dry. Do not soak, take baths, or swim until wound is completely healed. If any signs of infection such as redness, swelling, increasing pain, drainage of purulent discharge, streaks up your extremity develop, seek medical attention immediately. Patient Language: Irish Prescriptions: No Action melatonin 3 mg capsule 3 mg PO QHS fluvoxamine 25 mg tablet 25 mg PO QHS Qty: 30 3RF Rx Instructions: Please D/C the Zoloft. Thank you atorvastatin 40 mg tablet See Rx Instructions .ROUTE .COMPLEX Qty: 90 0RF Dose Instruction: TAKE 1 TABLET BY MOUTH DAILY Rx Instructions: TAKE 1 TABLET BY MOUTH DAILY divalproex 250 mg tablet,delayed release (DR/EC) See Rx Instructions .ROUTE .COMPLEX Qty: 90 0RF Rx Instructions: take 1 tablet in the am and 2 tablets in the pm; trazodone 50 mg tablet 50 mg PO QHS PRN (Reason: insomnia) Qty: 30 1RF Follow-up/Referrals: Eladio Brush MD [Primary Care Provider] - Stand Alone Forms: Work/School Release IP Time of Disposition: 11:54
[2024-05-16] MEDS: TETANUS,DIPHTHERIA,AC PERTUSSIS ADULT (0.5 ML) BOOSTRIX IM (12:00)
== END 2024-05-16 12:30 | disposition home or self-care (01) ==
LOC: ANHED 12:04
PROVIDERS: Emergency Provider Physician Assistant; PCP Internal Medicine
DX: S61.211A Laceration without foreign body of left index finger without damage to nail, initial encounter (principal); Z23 Encounter for immunization; I10 Essential (primary) hypertension; E78.5 Hyperlipidemia, unspecified; E55.9 Vitamin D deficiency, unspecified; F84.0 Autistic disorder; W26.0XXA Contact with knife, initial encounter
CPT/HCPCS: 12001; 90471; 90715; 99282

== ENCOUNTER 2024-09-11 09:55 | Outpatient (CLI) | payer MEDICARE, MEDICAID, SELFPAY ==
--- OUTSIDE RECORDS SUMMARY | 2024-09-11 11:10 | XMS_ITS | Referral Summary ---
Author Organization [address] Address [address] [place] [id number] Care Team Providers Care Oil Deliverer Name Role Phone Eladio Brush MD Primary Care Provider [phone] Allergies No known active allergies Medications atorvastatin (LIPITOR) 40 mg tablet 11/14/[address] (DEPAKOTE) 250 mg EC tablet 11/21/2022 Active terbinafine (LamiSIL) 250 mg tablet 11/21/2022 Active Active Problems No known active problems Social History Tobacco Use Types Packs/Day Years Used Date Smoking Tobacco: Never Assessed Sex and Gender Information Value Date Recorded Sex Assigned at Not on file Legal Sex Male 3:55 PM CDT Gender Identity Not on file Sexual Orientation Not on file Last Filed Vital Signs Vital Sign Reading Time Taken Comments Blood Pressure 118/76 12/08/2022 4:25 PM CDT Pulse 64 12/08/2022 4:25 PM CDT Temperature 36.9 C (98.4 F) 12/08/2022 4:25 PM CDT Respiratory Rate 16 12/08/2022 4:25 PM CDT Oxygen Saturation 99% 12/08/2022 4:25 PM CDT Inhaled Oxygen Concentration - - Weight 50.7 kg (111 lb 11.2 oz) 12/08/2022 4:25 PM CDT Height 170.2 cm (5' 7 ) 12/08/2022 4:25 PM CDT Body Mass Index 17.49 12/08/2022 4:25 PM CDT Plan of Treatment Not on file Insurance [facility] MEDICARE ADVANTAGE [facility] MEDIC[facility] ADVANTAGE Care Teams Oil Deliverer Relationship Specialty Start Date End Date Eladio Brush MD [address] [facility] [address] [place] [address] PCP - General Internal Medicine 12/08/22
--- OUTSIDE RECORDS SUMMARY | 2024-09-11 11:10 | XMS_ITS | Clinical Summary ---
Author Organization [facility] [place] [address] Address [address] [place] [id number] Care Team Providers Care Customer Service Leader Name Role Phone Eladio Brush MD Primary Care Provider [phone] Allergies No known active allergies Medications atorvastatin [...] on file Sexual Orientation Not on file Obstetrics History Last Filed Vital Signs Vital Sign Reading [...] 12/08/2022 4:25 PM CDT Plan of Treatment Health Maintenance Due Date Last Done Comments Colon Cancer Screening-Colonoscopy 1972 Depression Screening 1972 Hepatitis C Screening 1972 Prostate Cancer Screening-PSA 1972 DTaP/Tdap/Td Vaccine (1 - Tdap) 01/20/1983 Hepatitis B Screening 01/20/1990 Regular Well Visit/Exam 18-64 01/20/1990 Zoster Vaccine (1 of 2) 01/20/2022 Influenza Vaccine (#1) 2024 Pneumococcal vaccine <65 Aged Out No longer eligible based on patient's age to complete this topic Insurance [facility] MEDICARE ADVANTAGE [employer] MEDICARE ADVANTAGE Care Teams Customer Service Leader Relationship Specialty Start Date End Date Eladio Brush MD [address] [facility] [address] [place] [address] PCP - General Internal Medicine 7/6/23
[2024-09-11 13:27] LABS: Valproic Acid 62.5 ug/mL (50-120)
[2024-09-11 13:35] LABS: Free T4 Free Thyroxine 0.82 ng/dL (0.78-2.19)
[2024-09-11 13:44] LABS: Hemoglobin A1C 5.5 % (<5.7)
[2024-09-11 15:22] LABS: Alanine Aminotransferase 39 U/L (6-50); Albumin Level 3.9 g/dL (3.5-5.1); Alkaline Phosphatase 63 U/L (38-126); Anion Gap 6 mmol/L (4-12); Aspartate Amino Transferase 43 U/L (17-59); Blood Urea Nitrogen 19 mg/dL (9-20); Carbon Dioxide 30 mmol/L (22-30); Chloride 105 mmol/L (98-107); Cholesterol 157 mg/dL (0-200); Estimated Glomerular Filt Rate > 60; Glucose 81 mg/dL (65-110); HDL Direct 59 mg/dL; Potassium 4.3 mmol/L (3.4-5.0); Sodium 141 mmol/L (137-145); Triglycerides 82 mg/dL (<150)
[2024-09-11 15:34] LABS: LDL Cholesterol Direct 68 mg/dL
== END 2024-09-11 09:56 | disposition home or self-care (01) ==
LOC: ANHLAB 09:57
PROVIDERS: PCP Internal Medicine; Visit Provider Internal Medicine
DX: E78.5 Hyperlipidemia, unspecified (principal); R56.9 Unspecified convulsions; R94.6 Abnormal results of thyroid function studies; Z13.1 Encounter for screening for diabetes mellitus; Z79.899 Other long term (current) drug therapy
CPT/HCPCS: 36415; 80053; 80061; 80164; 83036; 84439; 84443